=== PATIENT | female | born 2000 | race Caucasian/White ===

== ENCOUNTER 2024-12-16 09:12 | Emergency (ER) | payer BC, OTHER ==
[2024-12-16] MEDS ORDERED: Ibuprofen 200 MG TAB ONE (10:11)
== END 2024-12-16 10:31 | disposition home or self-care (01) ==
LOC: BURERS 09:12
DX: S93.402A Sprain of unspecified ligament of left ankle, initial encounter (principal); X50.1XXA Overexertion from prolonged static or awkward postures, initial encounter
CPT/HCPCS: 99283